=== PATIENT | male | born 1945 | race Caucasian/White ===

== ENCOUNTER → 2017-11-13 | Outpatient (CLI) | payer MEDICARE, OTHER ==
[2014-02-28 10:54] VITALS: BMI 21.7
[~2017-11-13] MED LIST: ACE325 PO; ACET-1748 PO; ACET500C41 PO; ALPH50CA5 PO; ASP325 PO; ASPI-1 PO; AZA50 PO; AZAT50TA25 PO; CALC500T76 PO; DIPH-1 PO; ERG400 PO; FERR27TA3 PO; FEXO30TA36 PO; FIDA200T PO; GLUC500C29 PO; HYD10 PO; HYD10 PR; HYDR25SU35 RC; IBUP200C71 PO; INF100I IV; LACT1CAP69 PO; LACT1CAP84 PO; LOPE2CAP88 PO; LORA-1254 PO; LORA-1455 PO; MESA1.2T2 PO; MESA4ENE13 RC; METR500P18 PO; MULT-1335 PO; PRED1TAB17 PO; PROBIOTIC1 EACH PO; TAM4 PO; VANC1.2514 PO; VANC125C2 PO; ZOL5 PO; ZOLP-350 PO; ZOLP-360 PO; [UNRECOGNIZED DRUG - CODE]; [UNRECOGNIZED DRUG - CODE] PO; [UNRECOGNIZED DRUG - CODE] RC; [UNRECOGNIZED DRUG - OTHER] PO
[2017-11-13 16:41] LABS: PLATELET COUNT, AUTOMATED 241 K/uL (150-450)
== END ==
LOC: LAB 16:14
PROVIDERS: ATTEND Nurse Practitioner Family
DX: K51.90 Ulcerative colitis, unspecified, without complications (principal); R19.7 Diarrhea, unspecified; R53.83 Other fatigue; K21.9 Gastro-esophageal reflux disease without esophagitis; A04.72 Enterocolitis due to Clostridium difficile, not specified as recurrent
CPT/HCPCS: 36415; 82040; 82247; 82310; 82374; 82435; 82565; 82947; 84075; 84132; 84155; 84295; 84450; 84460; 84520; 85025; 85651; 86140

== ENCOUNTER → 2018-01-22 | Outpatient (CLI) | payer MEDICARE, OTHER ==
[2014-02-28 10:54] VITALS: BMI 21.7
[~2018-01-22] MED LIST changes: +IBUP-136 PO; -IBUP200C71 PO
== END ==
LOC: LAB 16:08
PROVIDERS: ATTEND Internal Medicine
DX: E87.1 Hypo-osmolality and hyponatremia (principal)
CPT/HCPCS: 36415; 82040; 82310; 82374; 82435; 82565; 82570; 82947; 84100; 84132; 84156; 84295; 84520

== ENCOUNTER → 2018-06-02 | Outpatient (CLI) | payer MEDICARE, OTHER ==
[2014-02-28 10:54] VITALS: BMI 21.7
--- NOTE | 2018-06-02 19:16 | RADIOLOGY IMAGING REPORT ---
[place] [facility] [place] NAME: Naif Wilson : 1945 MR: [id number] V: [id number] EXAM DATE: ORDERING PHYSICIAN: CODI ACEVES TECHNOLOGIST: Location: [facility] Patient: Naif Wilson : 1945 Visit/Account:[id number] Date of Sevice: 06/02/2018 BONE MINERAL DENSITY Provided history: Screening for osteoporosis. History of prostate cancer. Additional pertinent history: none COMPARISON STUDIES: No relevant priors FINDINGS: LUMBAR SPINE: The bone mineral density (BMD) measured from [ L1-L4 ] correlates with a Z-score of 0.1 and a T-scor e of -1.5 which is consistent with mild osteopenia as defined by the World Health Organization. Th e corresponding risk of fracture in the lumbar spine is increased 3 times compared with a young maude lt reference population. LEFT HIP: Total hip region - Z-score 0.4 , T-score -1.1 Femoral neck - Z-score 0.3 , T-score -1.5. The lower of the two measurements is consistent with mild osteopenia as defined by the World Health Organization. The corresponding risk of fracture in the hip is increased 3 times compared with a yo lisa adult reference population. IMPRESSION: 1. LUMBAR SPINE: consistent with mild osteopenia 2. LEFT HIP: consistent with mild osteopenia LEFT Femoral Neck: Bone Mineral Density is 0.836 g/cm2 FRAX WHO Fracture Risk Assessment Tool link: http://www.cherise.ac.uk/FRAX/index.jsp The next DEXA scan of this patient should include the following sites: L1 - L4 and LEFT HIP PLEASE NOTE: 1. The World Health Organization defines low BMD as follows: T-score Normal > -1 Osteopenia -1 to -2.5 Osteoporosis < -2.5 without fractures Established osteoporosis < -2.5 with fractures 2. In general, you may wish to consider: Diagnosis Treatment Follow-up DEXA Normal BMD Prevention 2-3 years Osteopenia Prevention/therapy 1-2 years Osteoporosis Therapy Yearly 3. Fracture risk estimated from the T-score is more accurate for vertebral fractures (often spontaneo us) than for hip fractures. Report Dictated By: Hansel Steen MD at 06/02/2018 7:08 PM Report E-Signed By: Hansel Steen MD at 06/02/2018 7:13 PM WSN:[id number]
== END ==
LOC: RAD 15:02
PROVIDERS: ATTEND Nurse Practitioner Family
DX: M85.80 Other specified disorders of bone density and structure, unspecified site (principal); K51.90 Ulcerative colitis, unspecified, without complications
CPT/HCPCS: 77080

== ENCOUNTER → 2018-06-03 | Outpatient (CLI) | payer MEDICARE, OTHER ==
[2014-02-28 10:54] VITALS: BMI 21.7
[2018-06-03 16:49] LABS: PLATELET COUNT, AUTOMATED 265 K/uL (150-450)
== END ==
LOC: LAB 16:27
PROVIDERS: ATTEND Nurse Practitioner Family
DX: K51.90 Ulcerative colitis, unspecified, without complications (principal); K21.9 Gastro-esophageal reflux disease without esophagitis; R53.83 Other fatigue
CPT/HCPCS: 36415; 82040; 82247; 82306; 82310; 82374; 82435; 82565; 82607; 82947; 84075; 84132; 84155; 84295; 84450; 84460; 84520; 85025; 86140

== ENCOUNTER → 2018-11-03 | Outpatient (CLI) | payer MEDICARE, OTHER ==
[2014-02-28 10:54] VITALS: BMI 21.7
[2018-11-03 16:28] LABS: PLATELET COUNT, AUTOMATED 188 K/uL (150-450)
== END ==
LOC: LAB 16:11
PROVIDERS: ATTEND Nurse Practitioner Family
DX: Z51.81 Encounter for therapeutic drug level monitoring (principal); Z79.899 Other long term (current) drug therapy; R19.4 Change in bowel habit; E87.8 Other disorders of electrolyte and fluid balance, not elsewhere classified
CPT/HCPCS: 36415; 82040; 82247; 82310; 82374; 82435; 82565; 82947; 84075; 84132; 84155; 84295; 84450; 84460; 84520; 85025; 86140